=== PATIENT | female | born 1960 | race Caucasian/White ===

== ENCOUNTER 2021-11-17 14:06 | Emergency (ER) | payer OTHER, SELFPAY ==
[2021-11-17 14:18] VITALS: BP 203/111; PULSE 77; RESP 20; TEMP 36.9; O2SAT 98; BMI 22.2
[2021-11-17] MEDS: LIDOCAINE 1% W/EPI 30 ML (15:33)
--- NOTE | 2021-11-17 15:33 | ED.WOUNDLAC ---
HPI - Wound/Laceration General Chief Complaint: Wound/Laceration Stated Complaint: Left thigh cut Time Seen by Provider: 11/17/21 14:15 Source: patient Mode of arrival: Wheelchair History of Present Illness HPI narrative: This patient fell through a hole on her boat lacerating her left thigh. She hurt her left elbow as well but has no other injuries. She denies recent illness. She denies head pain neck pain back pain abdominal pain chest pain. Tetanus shot is not up-to-date. Related Data Allergies Allergy/AdvReac Type Severity Reaction Status Date / Time No Known Drug Allergies Allergy Verified 11/17/21 14:22 Review of Systems Review of Systems Narrative: Complete review of systems is negative other than as noted above. Patient History Social History Smoking Status: Never smoker Smoking Status: Never smoker alcohol intake frequency: a few times a week Exam Narrative Exam Narrative: GENERAL: Alert, cooperative and in no distress. HEAD: Atraumatic. Normocephalic. EYES: Sclera are clear without icterus. Extraocular movements are full. ENT: No rhinorrhea. Oropharynx is moist. Mouth exam is benign. NECK: Supple. Full range of motion. RESPIRATORY: No respiratory distress GASTROINTESTINAL: Abdomen soft, non-tender, nondistended. EXTREMITIES: No edema, full range of motion. No obvious trauma. Normal dorsalis pedis and posterior tibial pulse on the left. Normal function of the knee hip and wrist on the left. BACK: Normal inspection, no CVA tenderness. NEURO: Nonfocal examination, normal speech, normal gait. SKIN: Traumatic laceration to the anterior left thigh. This is gaping and into the subcutaneous tissue. Fascia covering the vastus intermedius is visible but not lacerated. PSYCH: Normally oriented. Normal range of affect. Appropriate behavior Initial Vital Signs Initial Vital Signs: Vital Signs Temperature 98.5 F 11/17/21 14:18 Pulse Rate 77 11/17/21 14:18 Respiratory Rate 20 11/17/21 14:18 Blood Pressure 203/111 H 11/17/21 14:18 Pulse Oximetry 98 11/17/21 14:18 Oxygen Delivery Method 11/17/21 14:18 Procedures Laceration Repair Laceration 1: Time of procedure: 15:20 Site: lower extremity Side (If applicable): left Size (cm): 6.5 Description: irregular Depth: simple, single layer Local Anesthetic: lidocaine 1% and with epi Amount of anesthesia used (mL): 10 Pre-repair: wound explored and irrigated extensively Skin layer closed with: nylon Skin layer suture size: 5-0 Number of sutures: 10 Technique: simple, interrupted Subcutaneous layer closed with: chromic gut Subcutaneous layer suture size: 4-0 Number of sutures: 4 Technique: simple, interrupted Course Orders Ordered: Discontinued Medications Bacitracin (Bacitracin Oint 0.9 Gm Pckt) 2 applic TOP NOW ONE Stop: 11/17/21 15:33 Diphtheria/Tetanus/Acell Pertussis (Tet,Diph,Pertuss(Acell),Vac/Pf 0.5 Ml Syringe) 0.5 ml IM .ONCE ONE Stop: 11/17/21 15:30 Vital Signs Vital signs: Vital Signs - 8 hr 11/17/21 14:18 Temperature 98.5 F Pulse Rate 77 Respiratory Rate 20 Blood Pressure 203/111 H Pulse Oximetry 98 Oxygen Delivery Method Room Air MDM - Wound/Laceration MDM Narrative Medical decision making narrative: Complex wound repair as detailed above. Standard wound care and typical return precautions given. Discharge Plan Departure Patient Disposition: Home Clinical Impression: Laceration Instructions: DI for Laceration Repair Activity Restrictions/Additional Instructions: I am sorry that you had this injury. I know it is very upsetting. I am glad that we could carefully repaired today for you. I recommend he leave the wound covered until tomorrow and then gently remove the dressing. He is going to see a lot of bruising subtle be alarmed by that. Follow up right away if you think it is getting infected though this is unlikely. Infection would look like increasing redness and increasing pain and warmth. Of course is going to be quite red right on the wound line itself however. If there is any foul-smelling discharge of course she should follow up right away for that as well. Sutures should be removed in about 10-14 days. Anyone can do this at any medical facility. After the sutures come out to prevent or minimize scar darkening I recommend sunblock SPF 50 or greater applied every single day. I also recommend med derma applied 2 or 3 times daily for the next year. Tylenol and/or ibuprofen should be sufficient to help with the pain and shortness you should be feeling over the next few days.
[2021-11-17] MEDS: TET,DIPH,PERTUSS(ACELL),VAC/PF 0.5 ML SYRINGE IM (15:40)
[2021-11-17] MEDS: BACITRACIN OINT 0.9 GM PCKT 2 APPLIC TOP (15:40)
[2021-11-17 16:02] VITALS: BP 177/95; PULSE 68; RESP 17; O2SAT 98
== END 2021-11-17 16:03 | disposition home or self-care (01) ==
PROVIDERS: Emergency Provider Family Medicine Addiction Medicine
DX: S81.812A Laceration without foreign body, left lower leg, initial encounter (principal); W45.8XXA Other foreign body or object entering through skin, initial encounter; Z23 Encounter for immunization
CPT/HCPCS: 12002; 90471; 99283; 90715